=== PATIENT | female | born 1965 | race Asian ===

== ENCOUNTER → 2016-10-09 | Day surgery (SDC) | payer OTHER ==
[~2016-10-09] VITALS: Ht 160 cm; Wt 50.8 kg
[~2016-10-09] MED LIST: 0.9% Sodium Chloride 1,000 ML IV SCH; ASCO1CAP4 PO; CALC-243 PO; CHOL200025 PO; LUTE40CA PO; Sodium Chloride LOK Flush 10 mL Syringe IV PRN; fentaNYL-PF 50 mCg/mL 2 mL Inj IVPUSH PRN
[2016-10-09 07:31] VITALS: BP 120/84; PULSE 59; RESP 16; O2SAT 100
[2016-10-09 08:28] VITALS: BP 97/60; PULSE 51; RESP 15; O2SAT 92
[2016-10-09 08:38] VITALS: BP 95/59; PULSE 68; RESP 15; O2SAT 93
[2016-10-09 08:47] VITALS: BP 107/71; PULSE 67; RESP 15; O2SAT 92
--- NOTE | 2016-10-09 08:47 | ENDO ---
[address] [address] ENDOSCOPY PROCEDURE PATIENT: YOANDY SOLORIO : 1965 MR#: [id number] ADMIT: 10/09/2016 JOB ID: [id number] DATE: 10/09/2016 PRIMARY PROVIDER: Baldo Vieira MD PROCEDURE: Colonoscopy with cold forceps polypectomy. INDICATIONS: A 51-year-old female who reports for colon cancer screening. EQUIPMENT: [employer]CO [employer]-H190DL. SEDATION: 1. Versed 3 mg. 2. Fentanyl 50 mcg. COMPLICATIONS: None identified. BOWEL PREPARATION: Very adequate. PROCEDURE INFO: After the risks and benefits were explained, written and verbal informed consent was obtained. The patient was brought into the endoscopy suite, and placed into the left lateral decubitus position. Sedation was achieved as above. A digital rectal examination was accomplished. No significant pathology appreciated. The scope was introduced into the rectum and advanced to the cecum as identified by the appendiceal orifice and ileocecal valve. The scope was slowly withdrawn to carefully examine the mucosa for any defects or lesions. Retroflexed views were avoided in the rectum. Multiple direct views were made through the dentate line for exclusion of pathology. The colon was decompressed. The scope removed from the patient who tolerated the procedure well. FINDINGS: In the cecum and in the transverse colon there were two diminutive polyps measuring up to about 3 mm in size. These were removed with cold forceps. No other significant pathology was appreciated throughout. The patient had some hypertrophied anal papillae identified on direct views through the anal canal. ENDOSCOPIC DIAGNOSIS: 1. Diminutive colon polyps. 2. Internal hemorrhoids. RECOMMENDATIONS: 1. Await histopathology. 2. If there are any adenomatous features identified, repeat colonoscopy will be suggested for five years' time. Otherwise a 10-year followup would be reasonable.
--- NOTE | 2016-10-11 17:37 | PATH ---
SURGICAL PATHOLOGY Attending Physician:Tammi Alves CASE STATUS: Signed Out PATIENT NAME: YOANDY SOLORIO PID: [id number] : 1965 DATE COLLECTED:10/09/2016 15:12 SPECIMEN: Colon, Polyp CLINICAL HISTORY: 1). COLON POLYPS FINAL DIAGNOSIS: 1.COLON POLYP, BIOPSY: - Serrated polyp favor sessile serrated adenoma in 1 of 2 fragments. - Colonic mucosa with no diagnostic abnormality in 1 of 2 fragments. ICD10 D12.6 GROSS DESCRIPTION: The specimen is received in one formalin filled container labeled with the patient's name, sublabeled "colon polyps" and consists of 2 portions of tissue which aggregate to 0.2 x 0.2 x 0.2 CM. The specimen is entirely submitted in one cassette. 10/09/2016DC MICRO DESCRIPTION: See diagnosis. ICD-9 CODES: CPT CODES: 1: 32886 Electronically Signed Out Maurice Radford MD [facility] Pathology [facility] [address], [place] [address] Technical component performed at [facility], [facility] [address], [place], [address]
== END | disposition home or self-care (01) ==
LOC: END
PROVIDERS: ATTEND Internal Medicine Gastroenterology
DX: Z12.11 Encounter for screening for malignant neoplasm of colon (principal); D12.0 Benign neoplasm of cecum; D12.3 Benign neoplasm of transverse colon; K64.8 Other hemorrhoids; M81.0 Age-related osteoporosis without current pathological fracture; M54.12 Radiculopathy, cervical region
CPT/HCPCS: 45380; 99153; G0500; J2250; J3010; J7030